=== PATIENT | female | born 1945 | race Caucasian/White ===

== ENCOUNTER 2020-06-03 17:16 | Inpatient (IN) ==
[2020-06-03] MEDS ORDERED: Isovue-370 500 ML BOTTLE IVP ONE (18:09)
[2020-06-03] MEDS ORDERED: Ondansetron 4 MG/2 ML VIAL IVP ONE (18:10)
[2020-06-03] MEDS ORDERED: *HR* FentaNYL (PF) 100 MCG/2 ML VIAL IVP ONE (18:10)
[2020-06-03 18:53] LABS: Basophils % 0.1 %; Hematocrit 46.6 % (35.3-44.9); Hemoglobin 16.1 g/dL (11.5-15.4); Immature Granulocytes % 0.6 % (0-4); Lymphocytes # 0.9 K/mcL (0.6-4.6); Lymphocytes % 6.3 %; Mean Corpuscular HGB Conc 34.5 g/dL (31.6-35.5); Mean Corpuscular Hemoglobin 31.5 pg (28.0-33.3); Mean Corpuscular Volume 91.2 fL (83.0-100.0); Mean Platelet Volume 9.4 fL (9.4-12.4); Monocytes # 0.5 K/mcL (0.0-1.3); Monocytes % 3.4 %; Neutrophils # 12.7 K/mcL (1.6-8.9); Platelet Count 329 K/mcL (140-400); Red Blood Count 5.11 M/mcL (3.82-4.97); Red Cell Distribution Width 11.6 % (11.5-14.5); Segmented Neutrophils % 89.6 %; White Blood Count 14.2 K/mcL (4.3-11.1)
[2020-06-03 19:23] LABS: Troponin I 0.05 ng/mL (< 0.04)
[2020-06-03 19:33] LABS: Alanine Aminotransferase 13 Units/L (7-52); Albumin 4.6 g/dL (3.5-5.7); Albumin/Globulin Ratio 1.6 (1.1-2.2); Alkaline Phosphatase 134 Units/L (34-104); Aspartate Amino Transferase 12 Units/L (13-39); BUN/Creatinine Ratio 21 (6-26); Bilirubin,Direct 0.1 mg/dL (0.0-0.2); Bilirubin,Indirect 0.4 mg/dL (0.0-1.0); Bilirubin,Total 0.5 mg/dL (0.3-1.0); Blood Urea Nitrogen 11 mg/dL (8-23); Calcium 9.6 mg/dL (8.6-10.3); Carbon Dioxide 26 mEq/L (23-29); Chloride 94 mEq/L (98-107); Globulin 2.9 g/dL (2.4-3.5); Glucose 205 mg/dL (70-105); Lipase < 3 Units/L (11-82); Osmolality,Calculated 283 (280-300); Potassium 3.5 mEq/L (3.5-5.1); Sodium 134 mEq/L (136-145); Total Protein 7.5 g/dL (6.4-8.9); eGFR For African Americans > 60 (> 60); eGFR For Non-African Americans > 60 (> 60)
[2020-06-03 21:27] LABS: Bilirubin,Urine Negative (Negative); Blood,Urine Trace (Negative); Clarity,Urine Clear (Clear); Color,Urine Light-Yellow (Yellow); Glucose,Urine (UA) 300 mg/dL (Normal); Hyaline Casts,Urine Few per lpf (None Seen); Ketones,Urine Negative (Negative); Leukocyte Esterase,Urine Negative (Negative); Nitrite,Urine Negative (Negative); PH,Urine 7.5 pH Units (5.0-8.0); Protein,Urine 70 mg/dL (Neg-Trace); Specific Gravity,Urine > 1.030 (1.010-1.025); Squamous Epithelial Cell,Urine Few per hpf (None-Few); Urobilinogen,Urine Normal (Normal); WBC,Urine 0-3 per hpf (0-3)
[2020-06-03] MEDS ORDERED: cefTRIAXone 1,000 MG in 0.9 % Sodium Chloride Mini Bag 100 ML IVPB ONE (21:47)
[2020-06-03] MEDS ORDERED: *HR* Heparin 5,000 UNIT/ML VIAL IVP PRN ×2 (21:49)
[2020-06-03] MEDS ORDERED: *HR* Heparin 5,000 UNIT/ML VIAL IVP ONE (21:49)
[2020-06-03] MEDS ORDERED: Heparin 25,000UNIT/250ML 1/2NS 25,000 UNIT/250 ML IV.SOLN IVC SCH (22:00)
[2020-06-03] MEDS ORDERED: cefTRIAXone 1,000 MG in Water for inj. (sterile) 10 ML IVP ONE (22:01)
[2020-06-03] MEDS ORDERED: *HR* OxyCODONE ER (12 HR) 20 MG TABLET PO ONE (22:01)
[2020-06-03 22:37] LABS: Heparin anti-factor XA UFH 0.05 IU/mL (0.30-0.70)
[2020-06-03 22:38] LABS: INR 1.1; Prothrombin Time 12.2 Seconds (9.4-12.1)
[2020-06-04] MEDS ORDERED: Naloxone 0.4 MG/ML INJ IVP PRN (00:56)
[2020-06-04] MEDS ORDERED: Pregabalin 50 MG CAPSULE PO PRN (00:58)
[2020-06-04] MEDS ORDERED: Dextrose Gel 15 GM/37.5 ML TUBE PO PRN ×2 (01:01)
[2020-06-04] MEDS ORDERED: D5% in Water 1,000 ML IVC PRN (01:01)
[2020-06-04] MEDS ORDERED: *HR* Dextrose 50 % in Water (Vial) 50 ML VIAL IVP PRN (01:01)
[2020-06-04] MEDS ORDERED: Perflutren Lipid Microsphere 1.3 ML in 0.9 % Sodium Chloride 8.7 ML IVP PRN (01:16)
[2020-06-04] MEDS ORDERED: *HR* OxyCODONE/APAP 5/325 TABLET PO ONE (01:46)
[2020-06-04] MEDS ORDERED: diazePAM 5 MG TABLET PO ONE (01:46)
[2020-06-04 02:00] LABS: Basophils % 0.2 %; Hematocrit 46.5 % (35.3-44.9); Hemoglobin 15.8 g/dL (11.5-15.4); Immature Granulocytes % 0.5 % (0-4); Mean Corpuscular Hemoglobin 31.3 pg (28.0-33.3); Mean Corpuscular Volume 92.1 fL (83.0-100.0); Mean Platelet Volume 9.5 fL (9.4-12.4); Monocytes # 1.4 K/mcL (0.0-1.3); Monocytes % 8.8 %; Neutrophils # 11.9 K/mcL (1.6-8.9); Platelet Count 373 K/mcL (140-400); Red Blood Count 5.05 M/mcL (3.82-4.97); Red Cell Distribution Width 11.9 % (11.5-14.5); Segmented Neutrophils % 77.5 %; White Blood Count 15.4 K/mcL (4.3-11.1)
[2020-06-04 02:05] LABS: INR 1.1
[2020-06-04] MEDS: Ringers Solution, Lactated 1,000 ML IVC SCH ×2 (02:10→17:36)
[2020-06-04 02:18] LABS: BUN/Creatinine Ratio 22 (6-26); Blood Urea Nitrogen 15 mg/dL (8-23); Carbon Dioxide 30 mEq/L (23-29); Chloride 95 mEq/L (98-107); Chol/HDL Ratio 6.3 (0-4.9); Cholesterol 303 mg/dL (< 200); Glucose 158 mg/dL (70-105); HDL Cholesterol 48 mg/dL (40-59); LDL Cholesterol,Calculated 200 mg/dL (< 100); Magnesium 1.9 mg/dL (1.6-2.6); Osmolality,Calculated 286 (280-300); Potassium 3.7 mEq/L (3.5-5.1); Sodium 136 mEq/L (136-145); Triglycerides 276 mg/dL (< 150); eGFR For African Americans > 60 (> 60); eGFR For Non-African Americans > 60 (> 60)
[2020-06-04] MEDS: Insulin LISPRO 300 UNITS/3 ML VIAL SQ SCH ×4 (06:12→23:35)
[2020-06-04] MEDS ORDERED: *HR* OxyCODONE ER (12 HR) 10 MG TABLET PO ONE (06:24)
[2020-06-04] MEDS: Cholecalciferol (D-3) 1,000 UNIT (25MCG) TABLET PO SCH (08:43)
[2020-06-04] MEDS: FLUoxetine 20 MG CAPSULE PO SCH (08:43)
[2020-06-04] MEDS: amLODIPine 5 MG TABLET PO SCH (08:44)
[2020-06-04] MEDS: BuPROPion SR (12 HR) 150 MG TABLET PO SCH (08:45)
[2020-06-04] MEDS: *HR* OxyCODONE/APAP 5/325 TABLET PO SCH ×2 (08:45→14:24)
[2020-06-04] MEDS: Spironolactone 25 MG TABLET PO SCH ×2 (08:45→20:19)
[2020-06-04] MEDS ORDERED: diazePAM 5 MG TABLET PO SCH (09:00)
[2020-06-04] MEDS ORDERED: Nystatin Ointment 15 GM TUBE TP SCH (09:00)
[2020-06-04] MEDS: Tiotropium 18 MCG inhalation IH SCH (09:12)
[2020-06-04] MEDS ORDERED: Nitroglycerin 0.4 MG TAB.SUBL SL ONE (10:37)
[2020-06-04] MEDS: Nystatin Cream 15 GM TUBE TP SCH ×2 (14:21→20:18)
[2020-06-04] MEDS: cefTRIAXone 1,000 MG in 0.9 % Sodium Chloride Mini Bag 100 ML IVPB SCH (17:37)
[2020-06-04] MEDS: *HR* OxyCODONE ER (12 HR) 40 MG TABLET PO SCH (17:46)
[2020-06-04] MEDS: diazePAM 5 MG TABLET PO SCH (20:20)
[2020-06-05] MEDS: *HR* OxyCODONE ER (12 HR) 40 MG TABLET PO SCH ×4 (00:06→23:44)
[2020-06-05] MEDS ORDERED: ALPHA 1 PROTEINASE INHIBITOR IVP SCH (00:58)
[2020-06-05 01:22] LABS: Basophils % 0.2 %; Eosinophils % 0.1 %; Immature Granulocytes % 0.4 % (0-4); Lymphocytes # 2.6 K/mcL (0.6-4.6); Lymphocytes % 23.9 %; Mean Corpuscular HGB Conc 33.8 g/dL (31.6-35.5); Mean Corpuscular Hemoglobin 32.4 pg (28.0-33.3); Mean Corpuscular Volume 95.6 fL (83.0-100.0); Mean Platelet Volume 9.7 fL (9.4-12.4); Monocytes # 0.9 K/mcL (0.0-1.3); Monocytes % 8.3 %; Neutrophils # 7.4 K/mcL (1.6-8.9); Platelet Count 269 K/mcL (140-400); Red Blood Count 4.08 M/mcL (3.82-4.97); Red Cell Distribution Width 11.9 % (11.5-14.5); Segmented Neutrophils % 67.1 %
[2020-06-05 01:34] LABS: Hemoglobin 13.2 g/dL (11.5-15.4)
[2020-06-05 01:44] LABS: BUN/Creatinine Ratio 39 (6-26); Blood Urea Nitrogen 19 mg/dL (8-23); Calcium 8.8 mg/dL (8.6-10.3); Carbon Dioxide 27 mEq/L (23-29); Chloride 98 mEq/L (98-107); Glucose 161 mg/dL (70-105); Magnesium 1.8 mg/dL (1.6-2.6); Osmolality,Calculated 286 (280-300); Potassium 3.5 mEq/L (3.5-5.1); Sodium 135 mEq/L (136-145); Troponin I 0.03 ng/mL (< 0.04); eGFR For African Americans > 60 (> 60); eGFR For Non-African Americans > 60 (> 60)
[2020-06-05] MEDS: Tiotropium 18 MCG inhalation IH SCH (08:04)
[2020-06-05] MEDS: Insulin LISPRO 300 UNITS/3 ML VIAL SQ SCH ×3 (08:05→16:24)
[2020-06-05] MEDS: FLUoxetine 20 MG CAPSULE PO SCH (08:20)
[2020-06-05] MEDS: diazePAM 5 MG TABLET PO SCH ×2 (08:20→20:48)
[2020-06-05] MEDS: Cholecalciferol (D-3) 1,000 UNIT (25MCG) TABLET PO SCH (08:20)
[2020-06-05] MEDS: BuPROPion SR (12 HR) 150 MG TABLET PO SCH (08:21)
[2020-06-05] MEDS: Spironolactone 25 MG TABLET PO SCH ×2 (08:22→20:48)
[2020-06-05] MEDS: amLODIPine 5 MG TABLET PO SCH (08:23)
[2020-06-05] MEDS: Nystatin Cream 15 GM TUBE TP SCH ×2 (08:25→20:41)
[2020-06-05] MEDS ORDERED: Ondansetron 4 MG/2 ML VIAL IVP PRN (11:55)
[2020-06-05] MEDS ORDERED: *HR* OxyCODONE/APAP 5/325 TABLET PO SCH (12:00)
[2020-06-05] MEDS: *HR* OxyCODONE/APAP 5/325 TABLET PO SCH ×4 (12:14→20:48)
[2020-06-05] MEDS: cefTRIAXone 1,000 MG in 0.9 % Sodium Chloride Mini Bag 100 ML IVPB SCH (18:11)
[2020-06-05] MEDS ORDERED: Insulin LISPRO 300 UNITS/3 ML VIAL SQ SCH (21:00)
[2020-06-06 01:40] LABS: Basophils # 0.1 K/mcL (0.0-0.2); Basophils % 0.6 %; Eosinophils % 0.4 %; Hematocrit 40.1 % (35.3-44.9); Hemoglobin 13.3 g/dL (11.5-15.4); Immature Granulocytes % 0.3 % (0-4); Lymphocytes # 3.9 K/mcL (0.6-4.6); Lymphocytes % 36.6 %; Mean Corpuscular HGB Conc 33.2 g/dL (31.6-35.5); Mean Corpuscular Hemoglobin 32.3 pg (28.0-33.3); Mean Corpuscular Volume 97.3 fL (83.0-100.0); Mean Platelet Volume 9.9 fL (9.4-12.4); Monocytes # 0.9 K/mcL (0.0-1.3); Neutrophils # 5.8 K/mcL (1.6-8.9); Platelet Count 277 K/mcL (140-400); Red Blood Count 4.12 M/mcL (3.82-4.97); Red Cell Distribution Width 11.9 % (11.5-14.5); Segmented Neutrophils % 54.1 %; White Blood Count 10.7 K/mcL (4.3-11.1)
[2020-06-06 02:01] LABS: BUN/Creatinine Ratio 23 (6-26); Blood Urea Nitrogen 17 mg/dL (8-23); Calcium 8.9 mg/dL (8.6-10.3); Carbon Dioxide 31 mEq/L (23-29); Chloride 98 mEq/L (98-107); Glucose 145 mg/dL (70-105); Osmolality,Calculated 286 (280-300); Potassium 3.6 mEq/L (3.5-5.1); Sodium 136 mEq/L (136-145); eGFR For African Americans > 60 (> 60); eGFR For Non-African Americans > 60 (> 60)
[2020-06-06] MEDS: Tiotropium 18 MCG inhalation IH SCH (08:03)
[2020-06-06] MEDS: Spironolactone 25 MG TABLET PO SCH (08:32)
[2020-06-06] MEDS: amLODIPine 5 MG TABLET PO SCH (08:33)
[2020-06-06] MEDS: *HR* OxyCODONE/APAP 5/325 TABLET PO SCH ×2 (08:34→13:49)
[2020-06-06] MEDS: diazePAM 5 MG TABLET PO SCH (08:36)
[2020-06-06] MEDS: Cholecalciferol (D-3) 1,000 UNIT (25MCG) TABLET PO SCH (08:37)
[2020-06-06] MEDS: *HR* OxyCODONE ER (12 HR) 40 MG TABLET PO SCH ×2 (08:44→16:18)
[2020-06-06] MEDS: Insulin LISPRO 300 UNITS/3 ML VIAL SQ SCH ×2 (08:49→12:38)
[2020-06-06] MEDS ORDERED: FLUoxetine 20 MG CAPSULE PO SCH (09:00)
[2020-06-06] MEDS ORDERED: BuPROPion XL (24 HR) 150 MG TABLET PO SCH (09:00)
[2020-06-06] MEDS ORDERED: Cefdinir 300 MG CAPSULE PO SCH (09:15)
[2020-06-06] MEDS: Nystatin Cream 15 GM TUBE TP SCH (10:11)
[2020-06-06 12:02] VITALS: BP 131/84
== END 2020-06-06 17:00 | disposition home or self-care (01) | DRG 872 ==
LOC: 3BNU 17:16 → EMEROOARM 17:16 → SUATTDRO 22:36 → 3BNU 23:36
PROVIDERS: ADMIT Family Medicine; ATTEND Internal Medicine

== ENCOUNTER 2022-04-09 14:27 | Inpatient (IN) ==
[2022-04-09 15:25] LABS: Basophils % 0.2 %; Hematocrit 46.9 % (35.3-44.9); Hemoglobin 15.9 g/dL (11.5-15.4); Immature Granulocytes % 0.7 % (0-4); Lymphocytes % 7.9 %; Mean Corpuscular HGB Conc 33.9 g/dL (31.6-35.5); Mean Corpuscular Hemoglobin 31.2 pg (28.0-33.3); Mean Corpuscular Volume 92.1 fL (83.0-100.0); Mean Platelet Volume 9.9 fL (9.4-12.4); Monocytes # 0.6 K/mcL (0.0-1.3); Monocytes % 4.7 %; Neutrophils # 11.2 K/mcL (1.6-8.9); Platelet Count 480 K/mcL (140-400); Red Blood Count 5.09 M/mcL (3.82-4.97); Segmented Neutrophils % 86.5 %
[2022-04-09 15:37] LABS: Calcium 9.6 mg/dL (8.6-10.3); Potassium 3.7 mEq/L (3.5-5.1)
[2022-04-09 15:49] LABS: Bilirubin,Urine Negative (Negative); Blood,Urine Trace (Negative); Clarity,Urine Clear (Clear); Color,Urine Light-Yellow (Yellow); Glucose,Urine (UA) >=1000 mg/dL (Normal); Hyaline Casts,Urine Many per lpf (None Seen); Ketones,Urine 40 mg/dL (Negative); Leukocyte Esterase,Urine Negative (Negative); Mucus,Urine Few per lpf (None-Few); Nitrite,Urine Negative (Negative); Protein,Urine >=600 mg/dL (Neg-Trace); Specific Gravity,Urine 1.017 (1.010-1.025); Squamous Epithelial Cell,Urine Few per hpf (None-Few); Urobilinogen,Urine Normal (Normal); WBC,Urine 0-3 per hpf (0-3)
[2022-04-09] MEDS ORDERED: Iopamidol - 370 500 ML MLS IVP ONE (15:51)
[2022-04-09] MEDS ORDERED: Morphine Sulfate 2 MG/ML SYRINGE IVP ONE (15:51)
[2022-04-09] MEDS ORDERED: 0.9 % Sodium Chloride 1,000 ML IVC ONE (16:10)
[2022-04-09] MEDS ORDERED: Ondansetron 4 MG/2 ML VIAL IVP ONE (16:39)
[2022-04-09] MEDS ORDERED: Famotidine 20 MG/2 ML VIAL IVP ONE (16:39)
[2022-04-09 16:45] LABS: VBG HCO3 28 mEq/L (21-27); VBG PCO2 47 mmHg (41-51); VBG PH 7.39 pH Units (7.32-7.42); VBG PO2 88 mmHg (25-50)
[2022-04-09 16:52] LABS: Hematocrit 43.8 % (35.3-44.9); Hemoglobin 14.8 g/dL (11.5-15.4); Mean Corpuscular HGB Conc 33.8 g/dL (31.6-35.5); Mean Corpuscular Volume 91.6 fL (83.0-100.0); Mean Platelet Volume 9.6 fL (9.4-12.4); Platelet Count 365 K/mcL (140-400); Red Blood Count 4.78 M/mcL (3.82-4.97); Red Cell Distribution Width 11.9 % (11.5-14.5)
[2022-04-09 16:54] LABS: Influenza A PCR Negative (Negative); Influenza B PCR Negative (Negative); Resp. Syncytial Virus PCR Negative (Negative)
[2022-04-09 16:57] LABS: SARS-CoV-2 by PCR (In House) Negative (Negative)
[2022-04-09 17:10] LABS: Alanine Aminotransferase 7 Units/L (7-52); Albumin 3.4 g/dL (3.5-5.7); Albumin/Globulin Ratio 1.8 (1.1-2.2); Alkaline Phosphatase 106 Units/L (34-104); Aspartate Amino Transferase 8 Units/L (13-39); BUN/Creatinine Ratio 25 (6-26); Bilirubin,Direct 0.1 mg/dL (0.0-0.2); Bilirubin,Indirect 0.4 mg/dL (0.0-1.0); Bilirubin,Total 0.5 mg/dL (0.3-1.0); Blood Urea Nitrogen 15 mg/dL (8-23); Calcium 7.1 mg/dL (8.6-10.3); Carbon Dioxide 24 mEq/L (23-29); Chloride 102 mEq/L (98-107); Globulin 1.9 g/dL (2.4-3.5); Glucose 215 mg/dL (70-105); Lipase < 3 Units/L (11-82); Osmolality,Calculated 287 (280-300); Sodium 135 mEq/L (136-145); Total Protein 5.3 g/dL (6.4-8.9); Troponin I 0.08 ng/mL (< 0.04)
[2022-04-09] MEDS ORDERED: Ketorolac 30 MG/ML VIAL IVP ONE (17:32)
[2022-04-09] MEDS ORDERED: Acetaminophen 325 MG TABLET PO PRN (17:46)
[2022-04-09] MEDS ORDERED: Naloxone 0.4 MG/ML INJ IVP PRN (17:46)
[2022-04-09] MEDS: Ringers Solution, Lactated 1,000 ML IVC SCH (18:52)
[2022-04-09] MEDS: Pantoprazole 40 MG VIAL IVP SCH (18:52)
[2022-04-09] MEDS ORDERED: *HR* Heparin 5,000 UNIT/ML VIAL IVP PRN ×2 (22:38)
[2022-04-09] MEDS ORDERED: *HR* Heparin 5,000 UNIT/ML VIAL IVP ONE (22:38)
[2022-04-09] MEDS ORDERED: Heparin 25,000UNIT/250ML 1/2NS 25,000 UNIT/250 ML IV.SOLN IVC SCH (22:45)
[2022-04-09] MEDS: *HR* FentaNYL (PF) 100 MCG/2 ML VIAL IVP PRN (23:35)
[2022-04-10 01:27] LABS: Basophils % 0.2 %; Hematocrit 43.1 % (35.3-44.9); Hemoglobin 14.8 g/dL (11.5-15.4); Immature Granulocytes % 0.4 % (0-4); Lymphocytes % 12.9 %; Mean Corpuscular HGB Conc 34.3 g/dL (31.6-35.5); Mean Corpuscular Hemoglobin 31.2 pg (28.0-33.3); Mean Corpuscular Volume 90.9 fL (83.0-100.0); Mean Platelet Volume 9.7 fL (9.4-12.4); Monocytes # 1.1 K/mcL (0.0-1.3); Monocytes % 7.5 %; Neutrophils # 12.1 K/mcL (1.6-8.9); Platelet Count 436 K/mcL (140-400); Red Blood Count 4.74 M/mcL (3.82-4.97); Red Cell Distribution Width 11.9 % (11.5-14.5); White Blood Count 15.3 K/mcL (4.3-11.1)
[2022-04-10] MEDS: *HR* Labetalol 20 MG/4 ML SYRINGE IVP PRN ×2 (01:36→02:16)
[2022-04-10 01:39] LABS: Heparin anti-factor XA UFH 0.68 IU/mL (0.30-0.70); INR 1.1; Prothrombin Time 12.3 Seconds (9.4-12.1)
[2022-04-10] MEDS: Ringers Solution, Lactated 1,000 ML IVC SCH ×3 (01:40→18:35)
[2022-04-10 01:58] LABS: BUN/Creatinine Ratio 25 (6-26); Blood Urea Nitrogen 16 mg/dL (8-23); Calcium 9.2 mg/dL (8.6-10.3); Carbon Dioxide 25 mEq/L (23-29); Chloride 96 mEq/L (98-107); Glucose 190 mg/dL (70-105); Osmolality,Calculated 282 (280-300); Potassium 4.1 mEq/L (3.5-5.1); Sodium 133 mEq/L (136-145)
[2022-04-10] MEDS ORDERED: Nitroprusside 0.9% NaCl 20 MG/100 ML VIAL IVC SCH (03:45)
[2022-04-10] MEDS: *HR* FentaNYL (PF) 100 MCG/2 ML VIAL IVP PRN ×3 (05:11→18:51)
[2022-04-10] MEDS ORDERED: *HR* Enoxaparin 40 MG/0.4 ML SYRINGE SQ SCH ×2 (06:00)
[2022-04-10] MEDS ORDERED: Dextrose Gel 15 GM/37.5 ML TUBE PO PRN ×2 (08:09)
[2022-04-10] MEDS ORDERED: *HR* Dextrose 50 % in Water (Syg) 50 ML SYRINGE IVP PRN (08:09)
[2022-04-10] MEDS ORDERED: D5% in Water 1,000 ML IVC PRN (08:09)
[2022-04-10] MEDS: Ascorbic Acid 500 MG TABLET PO SCH (08:42)
[2022-04-10] MEDS: FLUoxetine 20 MG CAPSULE PO SCH (08:42)
[2022-04-10] MEDS: diazePAM 5 MG TABLET PO SCH ×2 (08:42→20:49)
[2022-04-10] MEDS: BuPROPion XL (24 HR) 150 MG TABLET PO SCH (08:43)
[2022-04-10] MEDS: Spironolactone 25 MG TABLET PO SCH ×2 (08:43→20:48)
[2022-04-10] MEDS: Cholecalciferol (D-3) 1,000 UNIT (25MCG) TABLET PO SCH (08:43)
[2022-04-10] MEDS: Pantoprazole 40 MG VIAL IVP SCH (08:43)
[2022-04-10] MEDS: OXYCODONE MYRISTATE 36 MG PO SCH ×3 (08:44→20:50)
[2022-04-10] MEDS ORDERED: NON-FORMULARY MEDICATION 1 EACH EACH (Omega-3 Fatty Acids [Fish Oil] 300 MG Capsule) PO SCH (09:00)
[2022-04-10] MEDS ORDERED: FLUoxetine 20 MG CAPSULE PO SCH (09:00)
[2022-04-10] MEDS ORDERED: amLODIPine 5 MG TABLET PO SCH (09:00)
[2022-04-10] MEDS ORDERED: *HR* Enoxaparin 30 MG/0.3 ML SYRINGE SQ ONE (09:45)
[2022-04-10] MEDS: *HR* Enoxaparin 80 MG/0.8 ML SYRINGE SQ SCH ×2 (09:46→20:49)
[2022-04-10] MEDS: Tiotropium 10 INH DOSE IH SCH (10:54)
[2022-04-10] MEDS: Multivit/Ca/Min/Fe/FA 1 TAB TABLET PO SCH (11:03)
[2022-04-10] MEDS: Nystatin Cream 15 GM TUBE TP SCH (12:02)
[2022-04-10] MEDS: Insulin LISPRO 300 UNITS/3 ML VIAL SUBQ SCH ×2 (12:08→17:43)
[2022-04-10 13:53] LABS: Estimated Average Glucose 148 mg/dl; Hemoglobin A1C 6.8 %
[2022-04-10] MEDS: Ondansetron 4 MG/2 ML VIAL IVP PRN (18:51)
[2022-04-11] MEDS: Nystatin Cream 15 GM TUBE TP SCH ×3 (00:57→20:27)
[2022-04-11] MEDS: Insulin LISPRO 300 UNITS/3 ML VIAL SUBQ SCH ×4 (02:22→17:09)
[2022-04-11] MEDS: Ringers Solution, Lactated 1,000 ML IVC SCH ×3 (02:39→20:26)
[2022-04-11 03:36] LABS: Basophils % 0.2 %; Hematocrit 36.8 % (35.3-44.9); Immature Granulocytes % 0.5 % (0-4); Lymphocytes % 21.7 %; Mean Corpuscular HGB Conc 33.7 g/dL (31.6-35.5); Mean Corpuscular Hemoglobin 31.2 pg (28.0-33.3); Mean Corpuscular Volume 92.7 fL (83.0-100.0); Mean Platelet Volume 9.8 fL (9.4-12.4); Monocytes # 1.4 K/mcL (0.0-1.3); Neutrophils # 9.4 K/mcL (1.6-8.9); Platelet Count 318 K/mcL (140-400); Red Blood Count 3.97 M/mcL (3.82-4.97); Red Cell Distribution Width 11.9 % (11.5-14.5); Segmented Neutrophils % 67.6 %; White Blood Count 13.9 K/mcL (4.3-11.1)
[2022-04-11 03:53] LABS: Alanine Aminotransferase 10 Units/L (7-52); Albumin 3.7 g/dL (3.5-5.7); Albumin/Globulin Ratio 1.9 (1.1-2.2); Alkaline Phosphatase 100 Units/L (34-104); Aspartate Amino Transferase 17 Units/L (13-39); BUN/Creatinine Ratio 29 (6-26); Bilirubin,Total 0.7 mg/dL (0.3-1.0); Blood Urea Nitrogen 14 mg/dL (8-23); Calcium 8.5 mg/dL (8.6-10.3); Carbon Dioxide 27 mEq/L (23-29); Chloride 98 mEq/L (98-107); Glucose 122 mg/dL (70-105); Osmolality,Calculated 280 (280-300); Potassium 3.3 mEq/L (3.5-5.1); Sodium 134 mEq/L (136-145); Total Protein 5.7 g/dL (6.4-8.9)
[2022-04-11 03:54] LABS: Hemoglobin 12.4 g/dL (11.5-15.4)
[2022-04-11] MEDS: Ondansetron 4 MG/2 ML VIAL IVP PRN ×2 (05:14→16:53)
[2022-04-11] MEDS: *HR* FentaNYL (PF) 100 MCG/2 ML VIAL IVP PRN ×2 (05:15→11:03)
[2022-04-11] MEDS: Tiotropium 10 INH DOSE IH SCH (07:52)
[2022-04-11] MEDS: diazePAM 5 MG TABLET PO SCH ×2 (08:17→20:25)
[2022-04-11] MEDS: amLODIPine 5 MG TABLET PO SCH (08:19)
[2022-04-11] MEDS: Spironolactone 25 MG TABLET PO SCH ×2 (08:19→20:25)
[2022-04-11] MEDS: *HR* Enoxaparin 80 MG/0.8 ML SYRINGE SQ SCH ×2 (08:20→20:25)
[2022-04-11] MEDS: Cholecalciferol (D-3) 1,000 UNIT (25MCG) TABLET PO SCH (08:30)
[2022-04-11] MEDS: FLUoxetine 20 MG CAPSULE PO SCH (08:30)
[2022-04-11] MEDS: Ascorbic Acid 500 MG TABLET PO SCH (08:31)
[2022-04-11] MEDS: BuPROPion XL (24 HR) 150 MG TABLET PO SCH (08:31)
[2022-04-11] MEDS: OXYCODONE MYRISTATE 36 MG PO SCH ×3 (08:33→20:26)
[2022-04-11] MEDS: Pantoprazole 40 MG VIAL IVP SCH (08:34)
[2022-04-11] MEDS: Multivit/Ca/Min/Fe/FA 1 TAB TABLET PO SCH (15:26)
[2022-04-12 01:36] LABS: Basophils # 0.1 K/mcL (0.0-0.2); Basophils % 0.4 %; Eosinophils % 0.1 %; Hematocrit 36.7 % (35.3-44.9); Hemoglobin 12.2 g/dL (11.5-15.4); Immature Granulocytes % 0.3 % (0-4); Mean Corpuscular HGB Conc 33.2 g/dL (31.6-35.5); Mean Corpuscular Hemoglobin 31.2 pg (28.0-33.3); Mean Corpuscular Volume 93.9 fL (83.0-100.0); Mean Platelet Volume 9.6 fL (9.4-12.4); Monocytes # 1.2 K/mcL (0.0-1.3); Monocytes % 9.9 %; Neutrophils # 6.5 K/mcL (1.6-8.9); Platelet Count 284 K/mcL (140-400); Red Blood Count 3.91 M/mcL (3.82-4.97); Red Cell Distribution Width 11.9 % (11.5-14.5); Segmented Neutrophils % 55.3 %; White Blood Count 11.8 K/mcL (4.3-11.1)
[2022-04-12] MEDS: Insulin LISPRO 300 UNITS/3 ML VIAL SUBQ SCH ×4 (05:07→21:02)
[2022-04-12] MEDS: Ringers Solution, Lactated 1,000 ML IVC SCH ×2 (05:37→15:51)
[2022-04-12] MEDS: Tiotropium 10 INH DOSE IH SCH (08:08)
[2022-04-12] MEDS: FLUoxetine 20 MG CAPSULE PO SCH (09:24)
[2022-04-12] MEDS: Ascorbic Acid 500 MG TABLET PO SCH (09:24)
[2022-04-12] MEDS: OXYCODONE MYRISTATE 36 MG PO SCH ×3 (09:25→21:05)
[2022-04-12] MEDS: Spironolactone 25 MG TABLET PO SCH ×2 (09:25→21:05)
[2022-04-12] MEDS: diazePAM 5 MG TABLET PO SCH ×2 (09:25→21:05)
[2022-04-12] MEDS: Multivit/Ca/Min/Fe/FA 1 TAB TABLET PO SCH (09:25)
[2022-04-12] MEDS: amLODIPine 5 MG TABLET PO SCH (09:25)
[2022-04-12] MEDS: BuPROPion XL (24 HR) 150 MG TABLET PO SCH (09:26)
[2022-04-12] MEDS: Cholecalciferol (D-3) 1,000 UNIT (25MCG) TABLET PO SCH (09:26)
[2022-04-12] MEDS: *HR* Enoxaparin 80 MG/0.8 ML SYRINGE SQ SCH (09:26)
[2022-04-12] MEDS: Pantoprazole 40 MG VIAL IVP SCH (09:27)
[2022-04-12 09:40] LABS: BUN/Creatinine Ratio 12 (6-26); Blood Urea Nitrogen 7 mg/dL (8-23); Calcium 8.3 mg/dL (8.6-10.3); Carbon Dioxide 34 mEq/L (23-29); Chloride 99 mEq/L (98-107); Glucose 133 mg/dL (70-105); Osmolality,Calculated 282 (280-300); Potassium 3.2 mEq/L (3.5-5.1); Sodium 136 mEq/L (136-145)
[2022-04-12] MEDS: Nystatin Cream 15 GM TUBE TP SCH ×2 (09:41→21:06)
[2022-04-12] MEDS ORDERED: Sennosides/Docusate Sodium TABLET PO SCH (13:30)
[2022-04-12] MEDS ORDERED: Iopamidol - 370 500 ML MLS IVP ONE (17:25)
[2022-04-12] MEDS: Lactobacillus 1 EACH CAP.SPRINK PO SCH (21:05)
[2022-04-13] MEDS: *HR* Enoxaparin 40 MG/0.4 ML SYRINGE SQ SCH (05:43)
[2022-04-13 05:47] LABS: Basophils % 0.4 %; Eosinophils # 0.1 K/mcL (0.0-0.6); Eosinophils % 1.2 %; Hematocrit 38.8 % (35.3-44.9); Hemoglobin 12.8 g/dL (11.5-15.4); Immature Granulocytes % 0.4 % (0-4); Lymphocytes # 3.7 K/mcL (0.6-4.6); Mean Corpuscular Hemoglobin 31.6 pg (28.0-33.3); Mean Corpuscular Volume 95.8 fL (83.0-100.0); Mean Platelet Volume 9.5 fL (9.4-12.4); Monocytes # 0.8 K/mcL (0.0-1.3); Monocytes % 8.6 %; Neutrophils # 4.8 K/mcL (1.6-8.9); Platelet Count 280 K/mcL (140-400); Red Blood Count 4.05 M/mcL (3.82-4.97); Red Cell Distribution Width 12.1 % (11.5-14.5); Segmented Neutrophils % 50.4 %; White Blood Count 9.5 K/mcL (4.3-11.1)
[2022-04-13 06:24] LABS: BUN/Creatinine Ratio 8 (6-26); Blood Urea Nitrogen 5 mg/dL (8-23); Calcium 8.6 mg/dL (8.6-10.3); Carbon Dioxide 33 mEq/L (23-29); Chloride 98 mEq/L (98-107); Glucose 124 mg/dL (70-105); Osmolality,Calculated 281 (280-300); Potassium 3.2 mEq/L (3.5-5.1); Sodium 136 mEq/L (136-145)
[2022-04-13] MEDS: Tiotropium 10 INH DOSE IH SCH (07:36)
[2022-04-13] MEDS: Insulin LISPRO 300 UNITS/3 ML VIAL SUBQ SCH ×4 (07:46→20:41)
[2022-04-13] MEDS: OXYCODONE MYRISTATE 36 MG PO SCH ×3 (09:18→20:40)
[2022-04-13] MEDS: FLUoxetine 20 MG CAPSULE PO SCH (09:21)
[2022-04-13] MEDS: Cholecalciferol (D-3) 1,000 UNIT (25MCG) TABLET PO SCH (09:22)
[2022-04-13] MEDS: Spironolactone 25 MG TABLET PO SCH ×2 (09:22→20:40)
[2022-04-13] MEDS: amLODIPine 5 MG TABLET PO SCH (09:22)
[2022-04-13] MEDS: Ascorbic Acid 500 MG TABLET PO SCH (09:22)
[2022-04-13] MEDS: BuPROPion XL (24 HR) 150 MG TABLET PO SCH (09:23)
[2022-04-13] MEDS: Lactobacillus 1 EACH CAP.SPRINK PO SCH ×2 (09:23→20:40)
[2022-04-13] MEDS: diazePAM 5 MG TABLET PO SCH ×2 (09:23→20:40)
[2022-04-13] MEDS: Nystatin Cream 15 GM TUBE TP SCH ×2 (09:23→20:41)
[2022-04-13] MEDS: Multivit/Ca/Min/Fe/FA 1 TAB TABLET PO SCH (09:31)
[2022-04-14] MEDS: *HR* Enoxaparin 40 MG/0.4 ML SYRINGE SQ SCH (04:56)
[2022-04-14] MEDS: Tiotropium 10 INH DOSE IH SCH (07:26)
[2022-04-14] MEDS: Insulin LISPRO 300 UNITS/3 ML VIAL SUBQ SCH ×3 (07:30→17:24)
[2022-04-14] MEDS: OXYCODONE MYRISTATE 36 MG PO SCH ×2 (08:29→15:15)
[2022-04-14] MEDS: Multivit/Ca/Min/Fe/FA 1 TAB TABLET PO SCH (08:30)
[2022-04-14] MEDS: amLODIPine 5 MG TABLET PO SCH (08:30)
[2022-04-14] MEDS: diazePAM 5 MG TABLET PO SCH (08:30)
[2022-04-14] MEDS: Ascorbic Acid 500 MG TABLET PO SCH (08:30)
[2022-04-14] MEDS: Spironolactone 25 MG TABLET PO SCH (08:33)
[2022-04-14] MEDS: Cholecalciferol (D-3) 1,000 UNIT (25MCG) TABLET PO SCH (08:34)
[2022-04-14] MEDS: FLUoxetine 20 MG CAPSULE PO SCH (08:34)
[2022-04-14] MEDS: Lactobacillus 1 EACH CAP.SPRINK PO SCH (08:34)
[2022-04-14] MEDS: BuPROPion XL (24 HR) 150 MG TABLET PO SCH (08:34)
[2022-04-14 09:21] LABS: Basophils % 0.4 %; Eosinophils # 0.1 K/mcL (0.0-0.6); Eosinophils % 1.4 %; Hematocrit 40.2 % (35.3-44.9); Hemoglobin 13.2 g/dL (11.5-15.4); Immature Granulocytes % 0.4 % (0-4); Lymphocytes # 2.7 K/mcL (0.6-4.6); Lymphocytes % 29.7 %; Mean Corpuscular HGB Conc 32.8 g/dL (31.6-35.5); Mean Corpuscular Hemoglobin 31.4 pg (28.0-33.3); Mean Corpuscular Volume 95.7 fL (83.0-100.0); Mean Platelet Volume 10.1 fL (9.4-12.4); Monocytes # 0.7 K/mcL (0.0-1.3); Monocytes % 7.7 %; Neutrophils # 5.5 K/mcL (1.6-8.9); Platelet Count 315 K/mcL (140-400); Red Cell Distribution Width 12.2 % (11.5-14.5); Segmented Neutrophils % 60.4 %; White Blood Count 9.1 K/mcL (4.3-11.1)
[2022-04-14 09:42] LABS: BUN/Creatinine Ratio 9 (6-26); Blood Urea Nitrogen 5 mg/dL (8-23); Calcium 8.9 mg/dL (8.6-10.3); Carbon Dioxide 34 mEq/L (23-29); Chloride 97 mEq/L (98-107); Glucose 159 mg/dL (70-105); Osmolality,Calculated 281 (280-300); Potassium 4.3 mEq/L (3.5-5.1); Sodium 135 mEq/L (136-145)
[2022-04-14] MEDS: Nystatin Cream 15 GM TUBE TP SCH (09:43)
[2022-04-14 11:31] VITALS: TEMP 98.9
[2022-04-14 18:13] VITALS: BP 165/90; PULSE 81; O2SAT 98
== END 2022-04-14 19:05 | disposition home or self-care (01) | DRG 438 ==
LOC: EMEROOARM 14:27 → 2NENU 14:27 → SUATTDRO 04-10 17:18
PROVIDERS: ADMIT Internal Medicine; ATTEND Student in an Organized Health Care Education/Training Program